=== PATIENT | female | born 1975 | race Caucasian/White ===

== ENCOUNTER 2023-11-11 12:59 | Emergency (ER) | payer MEDICAID ==
[~2023-11-11] VITALS: Ht 172.7 cm; Wt 90.7 kg
[2023-11-11 13:26] VITALS: BP 154/97; PULSE 89; RESP 18; TEMP 98; O2SAT 98
[2023-11-11 15:00] VITALS: O2SAT 98
[2023-11-11] MEDS ORDERED: ACET-8905 PO ×2 (15:00→15:56)
[2023-11-11] MEDS ORDERED: AMOX500C25 PO ×2 (15:00→15:56)
[2023-11-11] MEDS: PENICILLIN G BENZATHINE L-A 1.2 MU/2 ML SYR IM ONE (15:26)
[2023-11-11] MEDS: KETOROLAC 60 MG/2 ML VIAL IM ONE (15:27)
[2023-11-11 16:27] VITALS: BP 154/97; PULSE 89; RESP 18; TEMP 98
[2023-11-11 16:30] VITALS: O2SAT 98
[2023-11-12] MEDS ORDERED: ACET-503 PO (12:40)
== END 2023-11-11 16:27 | disposition home or self-care (01) ==
LOC: MED 12:59
DX: S02.5XXA Fracture of tooth (traumatic), initial encounter for closed fracture (principal); K04.7 Periapical abscess without sinus; Z90.49 Acquired absence of other specified parts of digestive tract; Z79.899 Other long term (current) drug therapy; Z79.2 Long term (current) use of antibiotics; X58.XXXA Exposure to other specified factors, initial encounter; Y92.89 Other specified places as the place of occurrence of the external cause; Y93.89 Activity, other specified; Y99.8 Other external cause status
CPT/HCPCS: 96372; 99284; J0561; J1885